=== PATIENT | male | born 1990 | race Caucasian/White ===

== ENCOUNTER 2023-05-14 20:10 | Emergency (ER) | payer BC, OTHER ==
[2023-05-14 20:41] VITALS: RESP 18
[2023-05-14] MEDS ORDERED: HYDROmorphone 0.5 MG/0.5 ML SYRINGE IVP STA (20:52)
[2023-05-14] MEDS ORDERED: ONDANSETRON 4 MG/2 ML VIAL IVP STA (20:52)
--- NOTE | 2023-05-14 20:56 | ED ---
Headache HPI - General Chief Complaint: Headache Stated Complaint: Headache, neck pain Time Seen by Provider: 05/14/23 20:43 Source: patient, family, RN notes reviewed Mode of arrival: ambulatory Limitations: no limitations - History of Present Illness Initial Comments: Patient is a 32-year-old male presented ER with chief complaint of right-sided neck pain and a headache. Patient states his neck pain that started on 05/09/23. He states it is mainly in his cervical spine and radiates somewhat into his arms. He does report one episode of paresthesias to his right upper extremity. Patient states on 05/11/23, he was awoken in his sleep with a right-sided headache. He states he is having trouble focusing visually. He does state he feels nauseous at times. Patient endorses a clammy feeling and feeling feverish. He has not taken his temperature at home. He reports the only trauma that he is aware of is when he was dirt biking a tiny branch hit him in the forehead. Family, at bedside, state that the headache is worse when he bends over to pick something off ground. Patient denies chest pain, shortness of breath, abdominal pain, urinary symptoms, cuts patient/diarrhea. - Related Data Allergies Allergy/AdvReac Type Severity Reaction Status Date / Time No Known Allergies Allergy Verified 05/14/23 20:22 Review of Systems ROS Statement: Those systems with pertinent positive or pertinent negative responses have been documented in the HPI. ROS Other: All systems not noted in ROS Statement are negative. Past Medical History Past Medical History: Asthma History of Any Multi-Drug Resistant Organisms: None Reported Past Surgical History: No Surgical Hx Reported Past Psychological History: No Psychological Hx Reported Smoking Status: Never smoker Past Alcohol Use History: None Reported Past Drug Use History: None Reported General Exam Limitations: no limitations General appearance: alert, in no apparent distress Head exam: Present: atraumatic, normocephalic, normal inspection Eye exam: Present: normal appearance, PERRL, EOMI. Absent: scleral icterus, conjunctival injection, periorbital swelling Pupils: Present: normal accommodation ENT exam: Present: normal exam, mucous membranes moist, TM's normal bilaterally Neck exam: Present: normal inspection. Absent: tenderness, meningismus, lymphadenopathy Respiratory exam: Present: normal lung sounds bilaterally. Absent: respiratory distress, wheezes, rales, rhonchi, stridor Cardiovascular Exam: Present: regular rate, normal rhythm, normal heart sounds. Absent: systolic murmur, diastolic murmur, rubs, gallop, clicks GI/Abdominal exam: Present: soft, normal bowel sounds. Absent: distended, tenderness, guarding, rebound, rigid Extremities exam: Present: normal inspection, full ROM, normal capillary refill, other (Equal cob sawyer strength). Absent: tenderness, pedal edema, joint swelling, calf tenderness Back exam: Present: normal inspection Neurological exam: Present: alert, oriented X3, CN II-XII intact Psychiatric exam: Present: normal affect, normal mood Skin exam: Present: warm, diaphoretic, pallor Course Vital Signs 05/14/23 05/14/23 20:23 22:20 Temperature 99 F Pulse Rate 89 Respiratory 18 18 Rate Blood Pressure 142/87 O2 Sat by Pulse 98 Oximetry Medical Decision Making - Medical Decision Making Was pt. sent in by a medical professional or institution (, PA, SWITCHER, urgent care, hospital, or shelter...) When possible be specific @ -No Did you speak to anyone other than the patient for history (EMS, parent, family, police, friend...)? What history was obtained from this source @ -Family Did you review nursing and triage notes (agree or disagree)? Why? @ -I reviewed and agree with nursing and triage notes Were old charts reviewed (outside hosp., previous admission, EMS record, old EK G, old radiological studies, urgent care reports/EKG's, shelter records)? Report findings @ -No old charts were reviewed Differential Diagnosis (chest pain, altered mental status, abdominal pain women, abdominal pain men, vaginal bleeding, weakness, fever, dyspnea, syncope, headache, dizziness, GI bleed, back pain, seizure, CVA, palpatations, mental health, musculoskeletal)? @ -Differential Headache: Migraine, tension, cluster, carbon monoxide, central venous thrombosis, pension karma temporal arteritis, acute closure glaucoma, i ntercranial hemorrhage, mastoiditis, sinusitis, head injury, this is not meant to be an all-inclusive list. EKG interpreted by me (3pts min.). @ -None X-rays interpreted by me (1pt min.). @ -None done CT interpreted by me (1pt min.). @ -CT brain C-spine showed showed no acute intracranial hemorrhage/mass effect, fractures or dislocations. U/S interpreted by me (1pt. min.). @ -None done What testing was considered but not performed or refused? (CT, X-rays, U/S, labs)? Why? @ -None What meds were considered but not given or refused? Why? @ -None Did you discuss the management of the patient with other professionals (professionals i.e. , PA, SWITCHER, lab, RT, psych nurse, high school social studies teacher, grain elevator operator, teacher, resident medical officer, collections manager)? Give summary @ -No Was smoking cessation discussed for >3mins.? @ -No Was critical care preformed (if so, how long)? @ -No Were there social determinants of health that impacted care today? How? (Homel essness, low income, unemployed, alcoholism, drug addiction, transportation, low edu. Level, literacy, decrease access to med. care, retirement, rehab)? @ -No Was there de-escalation of care discussed even if they declined (Discuss DNR or withdrawal of care, Hospice)? DNR status @ -No What co-morbidities impacted this encounter? (DM, HTN, Smoking, COPD, CAD, Cancer, CVA, ARF, Chemo, Hep., AIDS, mental health diagnosis, sleep apnea, morbid obesity)? @ -None Was patient admitted / discharged? Hospital course, mention meds given and route, prescriptions, significant lab abnormalities, going to OR and other pertinent info. @ -Discharge. Upon examination vitals remained stable. Patient received IV Dilaudid and Zofran for pain control in the ER. CT brain C-spine showed no acute intracranial hemorrhages/mass effect, fractures or dislocations. Patient will be discharged in stable condition with follow-up to neurology and primary care physician. I discussed this with family at bedside as patient was sleeping. Family expressed understanding and agreement with care plan. Undiagnosed new problem with uncertain prognosis? @ -No Drug Therapy requiring intensive monitoring for toxicity (Heparin, Nitro, In sulin, Cardizem)? @ -No Were any procedures done? @ -No Diagnosis/symptom? @ -Headache Acute, or Chronic, or Acute on Chronic? @ -Acute Uncomplicated (without systemic symptoms) or Complicated (systemic symptoms)? @ -Uncomplicated Side effects of treatment? @ -No Exacerbation, Progression, or Severe Exacerbation? @ -No Poses a threat to life or bodily function? How? (Chest pain, [place], [place], pneumonia, PE, COPD, DKA, ARF, appy, cholecystitis, CVA, Diverticulitis, Homicidal, Suicidal, threat to staff... and all critical care pts) @ -No - Lab Data Result diagrams: 05/14/23 21:06 05/14/23 21:06 Lab Results 05/14/23 05/14/23 Range/Units 21:06 21:06 WBC 4.5 (3.8-10.6) k/uL RBC 5.16 (4.30-5.90) m/uL Hgb 16.2 (13.0-17.5) gm/dL Hct 43.3 (39.0-53.0) % MCV 83.9 (80.0-100.0) fL MCH 31.5 (25.0-35.0) pg MCHC 37.5 H (31.0-37.0) g/dL RDW 12.9 (11.5-15.5) % Plt Count 98 L (150-450) k/uL MPV 9.0 Neutrophils % 61 % Lymphocytes % 22 % Monocytes % 12 % Eosinophils % 2 % Basophils % 0 % Neutrophils # 2.7 (1.3-7.7) k/uL Lymphocytes # 1.0 (1.0-4.8) k/uL Monocytes # 0.6 (0-1.0) k/uL Eosinophils # 0.1 (0-0.7) k/uL Basophils # 0.0 (0-0.2) k/uL Hyperchromasia Slight Sodium 138 (137-145) mmol/L Potassium 4.1 (3.5-5.1) mmol/L Chloride 104 (98-107) mmol/L Carbon Dioxide 24 (22-30) mmol/L Anion Gap 10 mmol/L BUN 12 (9-20) mg/dL Creatinine 0.83 (0.66-1.25) mg/dL Est GFR (CKD-EPI)AfAm >90 (>60 ml/min/1.73 sqM) Est GFR (CKD-EPI)NonAf >90 (>60 ml/min/1.73 sqM) Glucose 120 H (74-99) mg/dL Calcium 9.1 (8.4-10.2) mg/dL Total Bilirubin 0.6 (0.2-1.3) mg/dL AST 62 H (17-59) U/L ALT 54 H (4-49) U/L Alkaline Phosphatase 72 (38-126) U/L C-Reactive Protein 1.5 H (<1.0) mg/dL Total Protein 7.1 (6.3-8.2) g/dL Albumin 4.2 (3.5-5.0) g/dL - Radiology Data Radiology results: report reviewed, image reviewed Disposition Clinical Impression: Headache Disposition: HOME SELF-CARE Condition: Stable Additional Instructions: Please return to the Emergency Department if symptoms worsen or any other concerns. Please follow-up with neurology and primary care next week. Is patient prescribed a controlled substance at d/c from ED?: No Referrals: None,Stated [Primary Care Provider] - 1-2 days Yan Jean MD [STAFF PHYSICIAN] - 1-2 days Time of Disposition: 23:29
[2023-05-14 21:48] LABS: ALT 54 U/L (4-49); AST 62 U/L (17-59); African American GFR (CKD) >90 (>60 ml/min/1.73 sqM); Albumin 4.2 g/dL (3.5-5.0); Alkaline Phosphatase 72 U/L (38-126); Anion Gap 10 mmol/L; Blood Urea Nitrogen 12 mg/dL (9-20); C Reactive Protein 1.5 mg/dL (<1.0); Calcium 9.1 mg/dL (8.4-10.2); Carbon Dioxide 24 mmol/L (22-30); Chloride 104 mmol/L (98-107); Glucose 120 mg/dL (74-99); Non-African American GFR(CKD) >90 (>60 ml/min/1.73 sqM); Potassium 4.1 mmol/L (3.5-5.1); Sodium 138 mmol/L (137-145); Total Bilirubin 0.6 mg/dL (0.2-1.3); Total Protein 7.1 g/dL (6.3-8.2)
[2023-05-14 22:03] LABS: Basophils % (A) 0 %; Eosinophils # (A) 0.1 k/uL (0-0.7); Eosinophils % (A) 2 %; HCT 43.3 % (39.0-53.0); HGB 16.2 gm/dL (13.0-17.5); Hyperchromasia Slight; Lymphocytes % (A) 22 %; MCH 31.5 pg (25.0-35.0); MCHC 37.5 g/dL (31.0-37.0); MCV 83.9 fL (80.0-100.0); Monocytes # (A) 0.6 k/uL (0-1.0); Monocytes % (A) 12 %; Neutrophils # (A) 2.7 k/uL (1.3-7.7); Neutrophils % (A) 61 %; RBC 5.16 m/uL (4.30-5.90); RDW 12.9 % (11.5-15.5); WBC 4.5 k/uL (3.8-10.6)
[2023-05-14 22:11] LABS: Platelet Count 98 k/uL (150-450)
--- NOTE | 2023-05-14 23:15 | CT ---
EXAMINATION TYPE: CT brain cspine wo con CT DLP: 1367.8 mGycm, Automated exposure control for dose reduction was used. DATE OF EXAM: 05/14/2023 9:35 PM COMPARISON: None. CLINICAL INDICATION:Male, 32 years old with history of pain; Headache, neck pain. TECHNIQUE: Brain: Multiple axial CT images of the brain were obtained without IV contrast. Cspine: Axial CT images from the skull base to the inferior aspect of T2 we obtained without intraven ous contrast. Coronal and sagittal reformatted images were also reviewed. FINDINGS: Brain: Extra-axial spaces: No extra-axial hemorrhage/fluid collection. Ventricular system: Within normal limits Cerebral parenchyma: No acute intraparenchymal hemorrhage or mass effect. No significant atrophy. No loss of chakraborty-white matter distinction to suggest acute infarct. No significant white matter hypoatte nuation. Cerebellum: No acute abnormality. Mass effect: No evidence of midline shift. Intracranial vasculature: Unremarkable. Soft tissues: Unremarkable. Calvarium/osseous structures: No acute calvarial fracture seen. Paranasal sinuses and mastoid air cells: Clear. Visualized orbits: Orbital contents appear grossly intact. MRI is more sensitive for detecting acute processes such as infarct, and may be considered if clinica lly warranted. Cervical spine: Fracture: None. Osseous structures, spinal canal/neural foramina: No significant degenerative changes, significant shaw ny spinal canal or neural foraminal stenosis. Vertebral alignment: Within normal limits. Neck soft tissues: Prevertebral soft tissues are within normal limits. No other significant findings. Other: Lung apices show no acute infiltrate or pneumothorax. IMPRESSION: CT head: No acute intracranial abnormality. CT cervical spine: No evidence of cervical spine fracture or traumatic malalignment .
[2023-05-14] MEDS ORDERED: ACET/COD 300 MG/30 MG STARTER PACK 6 TAB BTL PO STA (23:28)
[2023-05-14 23:56] VITALS: BP 149/86; PULSE 81; TEMP 98.7
[2023-05-15 09:27] LABS: Erythrocyte Sedimentation Rate 4 mm/Hr (0-15)
== END 2023-05-14 23:41 | disposition home or self-care (01) ==
LOC: EC 20:10
DX: R51.9 Headache, unspecified (principal); J45.909 Unspecified asthma, uncomplicated
CPT/HCPCS: 36415; 80053; 85652; 85025; 86140; 72125; 70450; 99284; 96374; 96375; J2405; J1170